=== PATIENT | female | born 1960 | race Caucasian/White ===

== ENCOUNTER 2019-04-25 09:35 | Emergency (ER) | payer OTHER, SELFPAY ==
[2019-04-25 09:35] VITALS: BP 98/50; PULSE 80; RESP 18; TEMP 36.6; O2SAT 97; BMI 47.0
--- NOTE | 2019-04-25 09:46 | ED.EXTPRO ---
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 Patient states she had instant pain. She denies any other injuries. She denies hitting her head, she denies any neck or back pain. She states the pain is in the upper arm. She does not wish to lift or move it. She does have normal movement in her hand and does not have any tingling or numbness or weakness in her hand. Patient does take medication for diabetes she denies other medical problems. She has had knee surgery as well as hysterectomy. She received morphine EN route with EMS which did help her pain. She denies any blood thinners. Related Data Home Medications Medication Instructions Recorded Confirmed atorvastatin 10 mg PO QPM 04/25/19 04/25/19 citalopram 40 mg PO DAILY 04/25/19 04/25/19 glyburide 2.5 mg PO BID 04/25/19 04/25/19 lisinopril 20 mg PO DAILY 04/25/19 04/25/19 metformin 850 mg PO TID 04/25/19 04/25/19 spironolactone 25 mg PO DAILY 04/25/19 04/25/19 Previous Rx's Medication Instructions Recorded oxycodone-acetaminophen [Percocet] 1 tab PO Q4-6H PRN #20 tab 04/25/19 Allergies Allergy/AdvReac Type Severity Reaction Status Date / Time erythromycin base Allergy Verified 04/25/19 09:56 Review of Systems Review of Systems ROS Unobtainable: All systems reviewed & are unremarkable except as noted in HPI and below Constitutional Denies headache(s) and Denies other (Head injury) ENT Ears, Nose, Mouth, and Throat: Denies headache(s) and Denies neck pain Cardiovascular Denies chest pain and Denies dyspnea Respiratory Denies dyspnea Gastrointestinal Gastrointestinal: Denies nausea and Denies vomiting Musculoskeletal Reports as per HPI, Denies back pain, Reports arthralgias (Shoulder upper arm pain), Reports limited range of motion, Denies neck pain, Denies numbness and Denies tingling Neurologic Denies headache(s), Denies numbness and Denies tingling [facility] Medical History Diabetes (Chronic) Social History Smoking Status: Never smoker Exam Initial Vital Signs Initial Vital Signs: Vital Signs Temperature 97.8 F 04/25/19 09:35 Pulse Rate 80 04/25/19 09:35 Respiratory Rate 18 04/25/19 09:35 Blood Pressure 98/50 L 04/25/19 09:35 Pulse Oximetry 97 04/25/19 09:35 GEN: Patient appears in mild distress. HEAD: No evidence of trauma, no raccoon/Padgett sign. NECK: Nontender, painless range of motion, trachea midline Negative Nexus criteria, there is no line tenderness, distracting injury, altered mental status, neuro deficit, recent EtOH. EYES: PERRLA, EOMI ENT: External inspection normal, trachea is midline, airway is normal and with normal occlusion, No bony tenderness RESP: Chest is nontender and has symmetric movement, no ecchymosis, breath sounds are normal no crackles, wheezes or rales CVS: Heart sounds are normal, no murmur noted, No JVD. ABG/GI: Nontender, soft, normal bowel sounds, no distention, no organomegaly, pelvic rock is negative NEURO: Oriented AOx3, neuro is grossly intact, sensation and motor is normal all 4 extremities moving, cranial nerves II through XII are intact, GCS is 15 PSYCH: Normal mood and affect SKIN: Intact, warm and dry, no crepitus and without decubitus BACK: No CVA tenderness, no vertebral tenderness, no step-off's, no crepitus EXT: Atraumatic except for right upper extremity which she holds next her chest and flexed the elbow. She can fully move her wrist and fingers. She has pain with any movement of the elbow but it is more in the humeral area. She does not have any bony tenderness of the hand, wrist or forearm or elbow. She does not any tenderness of the clavicle or AC joint. She does have tenderness over the proximal upper arm. There does appear to be some mild bruising. There is no obvious deformity but a little difficult to tell from patient's body habitus, she has normal sensation through all 5 fingers, machine tool operator are equal bilaterally. 2+ radial pulse on the right. Hips are nontender, no pedal edema, normal color and temperature. Scores GCS Adriel coma scale eye opening: Spontaneous Adriel coma scale verbal response: Orientated Adriel coma scale motor response: Obey commands Adriel coma scale total score: 15 Course Orders Ordered: ED Orders 04/25/19 09:46 XR humerus RT 2V Stat XR shoulder RT min 2V Stat Discontinued Medications Morphine Sulfate (Morphine) 4 mg IV NOW ONE Stop: 04/25/19 10:59 Last Admin: 04/25/19 11:31 Dose: 4 mg Vital Signs - 8 hr 04/25/19 09:35 04/25/19 10:30 04/25/19 11:15 Temperature 97.8 F Pulse Rate 80 75 70 Respiratory Rate 18 16 Blood Pressure 98/50 L Blood Pressure [Left Arm] 122/67 107/64 Pulse Oximetry 97 97 96 04/25/19 12:00 Temperature Pulse Rate 75 Respiratory Rate 17 Blood Pressure Blood Pressure [Left Arm] 123/60 Pulse Oximetry 98 MDM - Extremity (Nontraumatic) Imaging Data Right shoulder x-ray: Radiologist's impression: [address] [address] XRay Report Signed Patient: Ana Nevarez#: [id number] : 9Acct:[id number] Age/Sex: 59 / FDate of Service: 04/25/19 Loc: ED Accession Number: [id number] Procedure: XR shoulder RT min 2V Ordering Provider: Polly Leyva D.O. PROCEDURE: XR SHOULDER RT MIN 2V INDICATIONS: right humeral/shoulder pain TECHNIQUE: 2 views of the shoulder were acquired. COMPARISON: [facility], , XR HUMERUS RT 2V, 04/25/2019, 9:48. FINDINGS: Bones: Mild degenerative change of the right acromioclavicular joint. Partially imaged acute oblique diaphyseal fractures of the right humerus, better described on comparison dedicated right humeral radiographs performed concurrently. Soft tissues: Soft tissue swelling of the right arm overlying the fracture site described above. IMPRESSION: Partially imaged acute oblique right humeral diaphyseal fractures, better described on comparison dedicated right humeral radiographs performed concurrently. Dictated by: Freddy Vazquez M.D. on 04/25/2019 at 10:34 Approved by: Freddy Vazquez M.D. on 04/25/2019 at 10:38 Right humeral x-ray: Radiologist's impression: [address] [address] XRay Report Signed Patient: Ana NevarezMR#: [id number] : 9Acct:[id number] Age/Sex: 59 / FDate of Service: 04/25/19 Loc: ED Accession Number: [id number] Procedure: XR humerus RT 2V Ordering Provider: Polly Leyva D.O. PROCEDURE: XR HUMERUS RT 2V INDICATIONS: right humerus/shoulder pain, fall into doorway TECHNIQUE: 2 views of the humerus were acquired. COMPARISON: None. FINDINGS: Bones: There are acute oblique fractures through the mid-diaphysis of the right humerus with mild lateral angulation and approximately one shaft width medial displacement of the distal fracture fragments. Soft tissues: Soft tissue edema overlying the mid-diaphyseal right humeral fracture site. IMPRESSION: Acute oblique displaced fractures of the mid-diaphysis of the right humerus. Dictated by: Freddy Vazquez M.D. on 04/25/2019 at 10:31 Approved by: Freddy Vazquez M.D. on 04/25/2019 at 10:34 MDM Narrative Medical decision making narrative: Patient has midshaft humeral spiral fracture which is displaced. Spoke with Dr. Tello, he recommends coaptation splint, follow up with the office. 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 Coaptation splint was placed in the department on recheck patient is neurovascularly intact. Able to extend fingers and wrist, she has normal sensation with good pulse. Patient states that it does feel a little bit more comfortable after splinting. I did give her strict precautions about movement and signs of some to watch out for radial nerve involvement. Plan for her to follow up as outpatient with Orthopedic surgery. They will call for an appointment later today. Medication for pain control. Patient was advised signs symptoms and reasons to return emergently. Discharge Plan Departure Patient Disposition: Home Clinical Impression: Humeral fracture Qualifiers: Encounter type: initial encounter Humerus Location: shaft Fracture type: closed Fracture alignment: displaced Laterality: right Instructions: DI for Humeral Fracture Activity Restrictions/Additional Instructions: Follow-up with Orthopedic surgery in the next 3-5 days, call for an appointment today. You may continue home medications as prescribed. Take pain medication as prescribed, this medication can make you sleepy do not drive, perform hazardous activities or make any major decisions while taking it. Splint Care: Keep splint clean and dry. Elevated affected body part to decrease swelling. OK to use ice pack on the affected body part. Use for 15-20 minutes each time, for 5-6x per day. If you develop worsening pain, numbness, tingling, discoloration of the affected body part, loosen the splint by loosening the MOODY wrap, and either see your doctor for an urgent re-assessment, or return to the Emergency Department. Return to the Emergency Department for any new or worsening symptoms. Prescriptions: New oxycodone-acetaminophen [Percocet] 5-325 mg tablet 1 tab PO Q4-6H PRN (Reason: pain) Qty: 20 RF: 0 No Action citalopram 40 mg Tablet 40 mg PO DAILY RF: 0 atorvastatin 10 mg Tablet 10 mg PO QPM RF: 0 glyburide 2.5 mg Tablet 2.5 mg PO BID RF: 0 lisinopril 20 mg Tablet 20 mg PO DAILY RF: 0 metformin 850 mg Tablet 850 mg PO TID RF: 0 spironolactone 25 mg Tablet 25 mg PO DAILY RF: 0 Referrals: Gil Tello MD [Physician] -
--- NOTE | 2019-04-25 09:52 | ED_ITS ---
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 Patient states she had instant pain. She denies any other injuries. She denies hitting her head, she denies any neck or back pain. She states the pain is in the upper arm. She does not wish to lift or move it. She does have normal movement in her hand and does not have any tingling or numbness or weakness in her hand. Patient does take medication for diabetes she denies other medical problems. She has had knee surgery as well as hysterectomy. She received morphine EN route with EMS which did help her pain. She denies any blood thinners. Related Data Home Medications Medication Instructions Recorded Confirmed atorvastatin 10 mg PO QPM 04/25/19 04/25/19 citalopram 40 mg PO DAILY 04/25/19 04/25/19 glyburide 2.5 mg PO BID 04/25/19 04/25/19 lisinopril 20 mg PO DAILY 04/25/19 04/25/19 metformin 850 mg PO TID 04/25/19 04/25/19 spironolactone 25 mg PO DAILY 04/25/19 04/25/19 Previous Rx's Medication Instructions Recorded oxycodone-acetaminophen [Percocet] 1 tab PO Q4-6H PRN #20 tab 04/25/19 Allergies Allergy/AdvReac Type Severity Reaction Status Date / Time erythromycin base Allergy Verified 04/25/19 09:56 Review of Systems Review of Systems ROS Unobtainable: All systems reviewed & are unremarkable except as noted in HPI and below Constitutional Denies headache(s) and Denies other (Head injury) ENT Ears, Nose, Mouth, and Throat: Denies headache(s) and Denies neck pain Cardiovascular Denies chest pain and Denies dyspnea Respiratory Denies dyspnea Gastrointestinal Gastrointestinal: Denies nausea and Denies vomiting Musculoskeletal Reports as per HPI, Denies back pain, Reports arthralgias (Shoulder upper arm pain), Reports limited range of motion, Denies neck pain, Denies numbness and Denies tingling Neurologic Denies headache(s), Denies numbness and Denies tingling [facility] Medical History Diabetes (Chronic) Social History Smoking Status: Never smoker Exam Initial Vital Signs Initial Vital Signs: Vital Signs Temperature 97.8 F 04/25/19 09:35 Pulse Rate 80 04/25/19 09:35 Respiratory Rate 18 04/25/19 09:35 Blood Pressure 98/50 L 04/25/19 09:35 Pulse Oximetry 97 04/25/19 09:35 GEN: Patient appears in mild distress. HEAD: No evidence of trauma, no raccoon/Padgett sign. NECK: Nontender, painless range of motion, trachea midline Negative Nexus criteria, there is no line tenderness, distracting injury, altered mental status, neuro deficit, recent EtOH. EYES: PERRLA, EOMI ENT: External inspection normal, trachea is midline, airway is normal and with normal occlusion, No bony tenderness RESP: Chest is nontender and has symmetric movement, no ecchymosis, breath sounds are normal no crackles, wheezes or rales CVS: Heart sounds are normal, no murmur noted, No JVD. ABG/GI: Nontender, soft, normal bowel sounds, no distention, no organomegaly, pelvic rock is negative NEURO: Oriented AOx3, neuro is grossly intact, sensation and motor is normal all 4 extremities moving, cranial nerves II through XII are intact, GCS is 15 PSYCH: Normal mood and affect SKIN: Intact, warm and dry, no crepitus and without decubitus BACK: No CVA tenderness, no vertebral tenderness, no step-off's, no crepitus EXT: Atraumatic except for right upper extremity which she holds next her chest and flexed the elbow. She can fully move her wrist and fingers. She has pain with any movement of the elbow but it is more in the humeral area. She does not have any bony tenderness of the hand, wrist or forearm or elbow. She does not any tenderness of the clavicle or AC joint. She does have tenderness over the proximal upper arm. There does appear to be some mild bruising. There is no obvious deformity but a little difficult to tell from patient's body habitus, she has normal sensation through all 5 fingers, senior oracle dba are equal bilaterally. 2+ radial pulse on the right. Hips are nontender, no pedal edema, normal color and temperature. Scores GCS Adriel coma scale eye opening: Spontaneous Adriel coma scale verbal response: Orientated Adriel coma scale motor response: Obey commands Adriel coma scale total score: 15 Course Orders Ordered: ED Orders 04/25/19 09:46 XR humerus RT 2V Stat XR shoulder RT min 2V Stat Discontinued Medications Morphine Sulfate (Morphine) 4 mg IV NOW ONE Stop: 04/25/19 10:59 Last Admin: 04/25/19 11:31 Dose: 4 mg Vital Signs - 8 hr 04/25/19 09:35 04/25/19 10:30 04/25/19 11:15 Temperature 97.8 F Pulse Rate 80 75 70 Respiratory Rate 18 16 Blood Pressure 98/50 L Blood Pressure [Left Arm] 122/67 107/64 Pulse Oximetry 97 97 96 04/25/19 12:00 Temperature Pulse Rate 75 Respiratory Rate 17 Blood Pressure Blood Pressure [Left Arm] 123/60 Pulse Oximetry 98 MDM - Extremity (Nontraumatic) Imaging Data Right shoulder x-ray: Radiologist's impression: [address] [address] XRay Report Signed Patient: Ana Nevarez#: [id number] : 9Acct:[id number] Age/Sex: 59 / FDate of Service: 04/25/19 Loc: ED Accession Number: [id number] Procedure: XR shoulder RT min 2V Ordering Provider: Polly Leyva D.O. PROCEDURE: XR SHOULDER RT MIN 2V INDICATIONS: right humeral/shoulder pain TECHNIQUE: 2 views of the shoulder were acquired. COMPARISON: [facility], , XR HUMERUS RT 2V, 04/25/2019, 9:48. FINDINGS: Bones: Mild degenerative change of the right acromioclavicular joint. Partially imaged acute oblique diaphyseal fractures of the right humerus, better described on comparison dedicated right humeral radiographs performed concurrently. Soft tissues: Soft tissue swelling of the right arm overlying the fracture site described above. IMPRESSION: Partially imaged acute oblique right humeral diaphyseal fractures, better described on comparison dedicated right humeral radiographs performed concurrently. Dictated by: Freddy Vazquez M.D. on 04/25/2019 at 10:34 Approved by: Freddy Vazquez M.D. on 04/25/2019 at 10:38 Right humeral x-ray: Radiologist's impression: [address] [address] XRay Report Signed Patient: Ana NevarezMR#: [id number] : 9Acct:[id number] Age/Sex: 59 / FDate of Service: 04/25/19 Loc: ED Accession Number: [id number] Procedure: XR humerus RT 2V Ordering Provider: Polly Leyva D.O. PROCEDURE: XR HUMERUS RT 2V INDICATIONS: right humerus/shoulder pain, fall into doorway TECHNIQUE: 2 views of the humerus were acquired. COMPARISON: None. FINDINGS: Bones: There are acute oblique fractures through the mid-diaphysis of the right humerus with mild lateral angulation and approximately one shaft width medial displacement of the distal fracture fragments. Soft tissues: Soft tissue edema overlying the mid-diaphyseal right humeral fracture site. IMPRESSION: Acute oblique displaced fractures of the mid-diaphysis of the right humerus. Dictated by: Freddy Vazquez M.D. on 04/25/2019 at 10:31 Approved by: Freddy Vazquez M.D. on 04/25/2019 at 10:34 MDM Narrative Medical decision making narrative: Patient has midshaft humeral spiral fracture which is displaced. Spoke with Dr. Tello, he recommends coaptation splint, follow up with the office. Patient does have radial nerve intact good extension and movement of her fingers and wrist as well as normal sensation, cash management associate and cap refill. Coaptation splint was placed in the department on recheck patient is neurovascularly intact. Able to extend fingers and wrist, she has normal sensation with good pulse. Patient states that it does feel a little bit more comfortable after splinting. I did give her strict precautions about movement and signs of some to watch out for radial nerve involvement. Plan for her to follow up as outpatient with Orthopedic surgery. They will call for an appointment later today. Medication for pain control. Patient was advised signs symptoms and reasons to return adalid gently. Discharge Plan Departure Patient Disposition: Home Clinical Impression: Humeral fracture Qualifiers: Encounter type: initial encounter Humerus Location: shaft Fracture type: closed Fracture alignment: displaced Laterality: right Instructions: DI for Humeral Fracture Activity Restrictions/Additional Instructions: Follow-up with Orthopedic surgery in the next 3-5 days, call for an appointment today. You may continue home medications as prescribed. Take pain medication as prescribed, this medication can make you sleepy do not drive, perform hazardous activities or make any major decisions while taking it. Splint Care: Keep splint clean and dry. Elevated affected body part to decrease swelling. OK to use ice pack on the affected body part. Use for 15-20 minutes each time, for 5-6x per day. If you develop worsening pain, numbness, tingling, discoloration of the affected body part, loosen the splint by loosening the MOODY wrap, and either see your doctor for an urgent re-assessment, or return to the Emergency Department. Return to the Emergency Department for any new or worsening symptoms. Prescriptions: New oxycodone-acetaminophen [Percocet] 5-325 mg tablet 1 tab PO Q4-6H PRN (Reason: pain) Qty: 20 RF: 0 No Action citalopram 40 mg Tablet 40 mg PO DAILY RF: 0 atorvastatin 10 mg Tablet 10 mg PO QPM RF: 0 glyburide 2.5 mg Tablet 2.5 mg PO BID RF: 0 lisinopril 20 mg Tablet 20 mg PO DAILY RF: 0 metformin 850 mg Tablet 850 mg PO TID RF: 0 spironolactone 25 mg Tablet 25 mg PO DAILY RF: 0 Referrals: Gil Tello MD [Physician] -
[2019-04-25 10:30] VITALS: BP 122/67; PULSE 75; RESP 16; O2SAT 97
[2019-04-25 11:15] VITALS: BP 107/64; PULSE 70; O2SAT 96
[2019-04-25] MEDS: MORPHINE 4 MG/ML INJ IV (11:31)
[2019-04-25 12:00] VITALS: BP 123/60; PULSE 75; RESP 17; O2SAT 98
== END 2019-04-25 12:15 | disposition home or self-care (01) ==
PROVIDERS: Emergency Provider Emergency Medicine; PCP Family Medicine
DX: S42.302A Unspecified fracture of shaft of humerus, left arm, initial encounter for closed fracture (principal); W01.0XXA Fall on same level from slipping, tripping and stumbling without subsequent striking against object, initial encounter
CPT/HCPCS: 29105; 29125; 29240; 73030; 73060; 96374; 99283; 99284; J2270